=== PATIENT | female | born 1980 | race Caucasian/White ===

== ENCOUNTER 2018-07-16 08:55 | Outpatient (CLI) | payer OTHER | END 2018-07-16 08:56 | disposition home or self-care (01) | LOC: C.LAB 08:55 | DX: Z00.01 Encounter for general adult medical examination with abnormal findings (principal); Z13.220 Encounter for screening for lipoid disorders; Z11.59 Encounter for screening for other viral diseases; M79.10 Myalgia, unspecified site ==